=== PATIENT | female | born 2000 | race African-American/Black ===

== ENCOUNTER 2021-09-25 16:40 | Emergency (ER) | payer OTHER, SELFPAY ==
[2021-09-25] MEDS ORDERED: Nitroglycerin 2% Ointment 1 INCH/1 GM Packet ONE (23:58)
== END 2021-09-25 17:23 | disposition left against medical advice (07) ==
LOC: CSHERS 16:40
DX: Z53.21 Procedure and treatment not carried out due to patient leaving prior to being seen by health care provider (principal)

== ENCOUNTER 2021-09-25 18:10 | Emergency (ER) | payer OTHER, SELFPAY ==
[2021-09-25 19:15] LABS: #Eosinphils 0.1 10x3/uL (0.0-0.5); #Monocytes 0.7 10x3/uL (0.0-1.1); #Neutrophils 3.2 10x3/uL (1.5-8.4); %Basophils 0.6 % (0.0-2.0); %Eosinophils 0.9 % (0.0-6.0); %Lymphocytes 40.4 % (18.0-47.0); %Monocytes 9.7 % (0.0-10.0); %Neutrophils 48.3 % (40.0-75.0); ALT (SGPT) 13 U/L (8-55); AST (SGOT) 15 U/L (5-34); Albumin 4.2 g/dL (3.5-5.0); Alkaline Phosphatase 34 U/L (40-110); Anion Gap 11 mmol/L (10-20); BUN (Urea Nitrogen) 13 mg/dL (7.0-18.7); Calc. Creatinine Clearance 0 mL/min (70-130); Calcium 9.3 mg/dL (7.8-10.44); Carbon Dioxide 26 mmol/L (22-29); Chloride 104 mmol/L (98-107); Globulin 3.4 g/dL (2.4-3.5); Glucose 77 mg/dL (70-105); Hemoglobin 12.6 g/dL (12.0-15.5); Mean Corpuscular HGB CONC 33.2 g/dL (32.0-36.0); Mean Corpuscular Hemoglobin 30.7 pg (27.0-33.0); Mean Corpuscular Volume 92.5 fl (81.6-98.3); Mean Platelet Volume 10.2 fl (7.4-10.4); Platelet Count 231 10x3/uL (150-450); Potassium 3.9 mmol/L (3.5-5.1); Protein, Total 7.6 g/dL (6.0-8.3); RBC Distribution Width 12.8 % (11.5-14.5); Red Blood Cell (RBC) Count 4.11 10x6/uL (3.90-5.03); Sodium 137 mmol/L (136-145); White Blood Cell (WBC) Count 6.7 10x3/uL (3.5-10.5)
== END 2021-09-25 20:21 | disposition left against medical advice (07) ==
LOC: CSHERS 18:10
DX: Z53.21 Procedure and treatment not carried out due to patient leaving prior to being seen by health care provider (principal)
CPT/HCPCS: 36415; 80053; 84702; 85025; 86900; 86901

== ENCOUNTER 2022-04-23 08:54 | Day surgery (SDC) | payer OTHER ==
[2022-04-23] MEDS ORDERED: Acetaminophen 500 MG TAB PO SCH (09:30)
[2022-04-23] MEDS ORDERED: Iron Sucrose Complex 500 MG in Sodium Chloride 0.9% 250 ML 250 ML IVPB SCH (10:00)
== END 2022-04-23 15:52 | disposition home or self-care (01) ==
LOC: CSHSDC/OP 08:54
PROVIDERS: ATTEND Family Medicine
DX: O99.019 Anemia complicating pregnancy, unspecified trimester (principal); Z3A.00 Weeks of gestation of pregnancy not specified
CPT/HCPCS: J1756; J7050

== ENCOUNTER 2022-05-23 03:03 | Day surgery (SDC) | payer OTHER ==
[2022-05-23 05:30] LABS: Fetal Membranes Rupture No Membranes Rupture (No Rupture)
[2022-05-23] MEDS ORDERED: hydrALAZINE 20 MG/ML VIAL SLOW IVP PRN (05:47)
== END 2022-05-23 05:55 | disposition home or self-care (01) ==
LOC: CSHLD/OP 03:03
PROVIDERS: ATTEND Obstetrics & Gynecology
DX: O99.891 Other specified diseases and conditions complicating pregnancy (principal); R10.10 Upper abdominal pain, unspecified; O98.813 Other maternal infectious and parasitic diseases complicating pregnancy, third trimester; B37.3 Candidiasis of vulva and vagina; Z3A.39 39 weeks gestation of pregnancy
CPT/HCPCS: 84112; 87480; 87510; 87660; 99285

== ENCOUNTER 2022-05-25 10:51 | Outpatient (CLI) | payer OTHER | END 2022-05-25 10:52 | disposition home or self-care (01) | LOC: CSHLAB 10:51 | PROVIDERS: ATTEND Family Medicine | DX: Z20.822 Contact with and (suspected) exposure to COVID-19 (principal) | CPT/HCPCS: 87811 ==

== ENCOUNTER 2022-05-25 19:17 | Inpatient (IN) | payer OTHER ==
[2022-05-25] MEDS ORDERED: Promethazine HCl 25 MG/ML VIAL IM PRN ×2 (19:43→21:04)
[2022-05-25] MEDS ORDERED: Carboprost 250 MCG/ML AMP IM PRN (19:43)
[2022-05-25] MEDS ORDERED: Misoprostol 200 MCG TAB PR PRN (19:43)
[2022-05-25] MEDS ORDERED: Lidocaine 1% (PF) 30 ML VIAL SC PRN (19:43)
[2022-05-25] MEDS ORDERED: Ondansetron PF 4 MG/2 ML Vial IVP PRN ×2 (19:43→21:04)
[2022-05-25] MEDS ORDERED: Ibuprofen 800 MG TAB PO PRN (19:43)
[2022-05-25] MEDS ORDERED: hydrALAZINE 20 MG/ML VIAL SLOW IVP PRN (19:43)
[2022-05-25] MEDS ORDERED: Methylergonovine 0.2 MG/ML VIAL IM PRN (19:43)
[2022-05-25 20:05] VITALS: BMI 28.1
[2022-05-25] MEDS ORDERED: Fentanyl 2 mcg/Bup 0.1% Cadd 100 ML ONE (20:08)
[2022-05-25 20:23] LABS: Hemoglobin 12.1 g/dL (12.0-15.5); Mean Corpuscular HGB CONC 32.8 g/dL (32.0-36.0); Mean Corpuscular Hemoglobin 27.7 pg (27.0-33.0); Mean Corpuscular Volume 84.4 fl (81.6-98.3); Mean Platelet Volume 11.3 fl (7.4-10.4); Platelet Count 197 10x3/uL (150-450); RBC Distribution Width 16.8 % (11.5-14.5); Red Blood Cell (RBC) Count 4.37 10x6/uL (3.90-5.03); White Blood Cell (WBC) Count 9.7 10x3/uL (3.5-10.5)
[2022-05-25 21:01] LABS: Syphilis Antibody Nonreactive (Nonreactive); Syphilis Antibody Index 0.06 S/CO (<1.00 Non-Reactive)
[2022-05-25 21:02] LABS: Hep B Surf Ag Non-Reactive S/CO (NonReactive)
[2022-05-25] MEDS ORDERED: Acetaminophen 325 MG TAB PO PRN (21:04)
[2022-05-25] MEDS ORDERED: ePHEDrine Sulfate 50 MG/10 ML VIAL SLOW IVP PRN (21:04)
[2022-05-25] MEDS ORDERED: Lactated Ringer's 500 ML IV PRN (21:04)
[2022-05-25] MEDS ORDERED: diphenhydrAMINE 50 MG/ML VIAL IVP PRN (21:04)
[2022-05-25] MEDS ORDERED: Naloxone HCl 0.4 mg/ml Vial IVP PRN ×2 (21:04)
[2022-05-25] MEDS ORDERED: Moisturizing Cream (Eucerin) 113 GM JAR TOP PRN (21:04)
[2022-05-25 21:13] LABS: HBSAg Index 0.18 S/CO (0-0.99)
[2022-05-25] MEDS ORDERED: Fentanyl 2 mcg/Bupivacaine 0.1% Cassette 100 ML EPIDURAL SCH (21:15)
[2022-05-25] MEDS ORDERED: Communication Order-Pharmacy FS SCH (21:15)
[2022-05-25 22:12] LABS: Amphetamine Not Detected (NotDetected); Barbiturates Screen Not Detected (NotDetected); Benzodiazepine Screen Not Detected (NotDetected); Cocaine Metabolite Screen Not Detected (NotDetected); Methadone Not Detected (NotDetected); Methamphetamine Not Detected (NotDetected); Opiate Screen Not Detected (NotDetected); Oxycodone Screen Not Detected (NotDetected); Phencyclidine (PCP) Not Detected (NotDetected); THC/Cannabinoid Screen Not Detected (NotDetected); Tricyclic Screen Not Detected (NotDetected)
[2022-05-26] MEDS: NS w/ Oxytocin 30 units 500 ML IV SCH ×2 (00:48→01:26)
[2022-05-26] MEDS ORDERED: Bisacodyl 10 MG SUPP PR PRN (02:15)
[2022-05-26] MEDS ORDERED: Boostrix 0.5 ML (Tdap) VIAL IM ONE (02:15)
[2022-05-26] MEDS ORDERED: Lanolin Ointment 7 GM TUBE TOP PRN (02:15)
[2022-05-26] MEDS ORDERED: Milk Of Magnesia 30 ML UDCUP PO PRN (02:15)
[2022-05-26 04:48] LABS: Hemoglobin 11.2 g/dL (12.0-15.5)
[2022-05-26] MEDS: Ibuprofen 800 MG TAB PO SCH ×3 (09:04→21:12)
[2022-05-26] MEDS: Ferrous Sulfate 325 MG TAB PO SCH ×2 (09:05→17:29)
[2022-05-26] MEDS: Prenatal Vitamin 1 TAB PO SCH (09:10)
[2022-05-26] MEDS: Docusate 100 MG CAP PO SCH ×2 (09:10→21:12)
[2022-05-26] MEDS: Benzocaine-Menthol 82.5 ML CAN TOP PRN (09:14)
[2022-05-27] MEDS: Ibuprofen 800 MG TAB PO SCH ×3 (05:05→22:12)
[2022-05-27] MEDS: Docusate 100 MG CAP PO SCH ×2 (08:23→22:12)
[2022-05-27] MEDS: Ferrous Sulfate 325 MG TAB PO SCH ×2 (08:23→15:12)
[2022-05-27] MEDS: Prenatal Vitamin 1 TAB PO SCH (08:23)
[2022-05-28] MEDS: Ibuprofen 800 MG TAB PO SCH (05:26)
[2022-05-28 07:58] VITALS: BP 117/73; TEMP 98.1
[2022-05-28] MEDS: Ferrous Sulfate 325 MG TAB PO SCH (08:33)
[2022-05-28] MEDS: Docusate 100 MG CAP PO SCH (08:51)
[2022-05-28] MEDS: Prenatal Vitamin 1 TAB PO SCH (08:51)
[2022-05-28] MEDS: Benzocaine-Menthol 82.5 ML CAN TOP PRN (08:52)
== END 2022-05-28 11:10 | disposition home or self-care (01) | DRG 806 ==
LOC: CSHLD/OP 19:17 → CSHLD 19:42 → CSHPP 05-26 03:31
PROVIDERS: ADMIT Obstetrics & Gynecology; ATTEND Obstetrics & Gynecology
PROC: 10E0XZZ Delivery of Products of Conception, External Approach (ICD-10-PCS; principal; 2022-05-26)
DX: O42.02 Full-term premature rupture of membranes, onset of labor within 24 hours of rupture (principal); O71.4 Obstetric high vaginal laceration alone; Z37.0 Single live birth; Z3A.39 39 weeks gestation of pregnancy; D64.9 Anemia, unspecified; O99.02 Anemia complicating childbirth; Z79.899 Other long term (current) drug therapy; O71.82 Other specified trauma to perineum and vulva; Z20.822 Contact with and (suspected) exposure to COVID-19
CPT/HCPCS: 36415; 51702; 80306; 85014; 85018; 85027; 86780; 86850; 86900; 86901; 87340; 87811; 99285; J2590

== ENCOUNTER 2023-08-16 13:04 | Emergency (ER) | payer OTHER, SELFPAY ==
[2023-08-16] MEDS ORDERED: Boostrix 0.5 ML (Tdap) VIAL (>/=7 yrs of age) ONE (13:50)
== END 2023-08-16 14:37 | disposition home or self-care (01) ==
LOC: CSHERS 13:04
DX: S01.311A Laceration without foreign body of right ear, initial encounter (principal); W50.3XXA Accidental bite by another person, initial encounter; Z23 Encounter for immunization
CPT/HCPCS: 12011; 90471; 90715

== ENCOUNTER 2023-08-22 15:13 | Emergency (ER) | payer SELFPAY | END 2023-08-22 16:29 | disposition home or self-care (01) | LOC: CSHERS 15:13 | DX: L08.89 Other specified local infections of the skin and subcutaneous tissue (principal); S01.311D Laceration without foreign body of right ear, subsequent encounter | CPT/HCPCS: 99282 ==